=== PATIENT | male | born 1995 | race Caucasian/White ===

== ENCOUNTER 2018-12-31 20:56 | Inpatient (IN) ==
[2018-12-31 22:00] LABS: Basophils % 0.2 %; Hematocrit 45.1 % (37.5-50.1); Hemoglobin 15.8 g/dL (12.9-16.9); Immature Granulocytes % 0.7 % (0-4); Lymphocytes % 5.9 %; Mean Corpuscular Hemoglobin 30.3 pg (28.0-33.3); Mean Corpuscular Volume 86.4 fL (83.0-100.0); Mean Platelet Volume 9.2 fL (9.4-12.4); Monocytes # 1.6 K/mcL (0.0-1.3); Monocytes % 9.1 %; Neutrophils # 14.8 K/mcL (1.6-8.9); Platelet Count 224 K/mcL (140-400); Red Blood Count 5.22 M/mcL (4.19-5.50); Red Cell Distribution Width 12.1 % (11.5-14.5); Segmented Neutrophils % 84.1 %; White Blood Count 17.6 K/mcL (4.3-11.1)
[2018-12-31 22:00] LABS: Bilirubin,Urine Small (Negative); Blood,Urine Negative (Negative); Clarity,Urine Cloudy (Clear); Color,Urine Orange (Yellow); Glucose,Urine (UA) Normal (Normal); Ketones,Urine 15 mg/dL (Negative); Leukocyte Esterase,Urine Small (Negative); Nitrite,Urine Positive (Negative); PH,Urine 5.5 pH Units (5.0-8.0); Protein,Urine 100 mg/dL (Neg-Trace); Specific Gravity,Urine > 1.030 (1.010-1.025); Urobilinogen,Urine Normal (Normal)
[2018-12-31 22:03] LABS: Squamous Epithelial Cell,Urine Many per lpf (None-Few); WBC,Urine 30-50 per hpf (0-3)
[2018-12-31 22:15] LABS: Bacteria,Urine Few per hpf (None-Few); Hyaline Casts,Urine Few per lpf (None-Few); Mucus,Urine Few (Few)
[2018-12-31 22:19] LABS: BUN/Creatinine Ratio 10 (6-26); Blood Urea Nitrogen 13 mg/dL (6-20); Calcium 9.6 mg/dL (8.6-10.3); Carbon Dioxide 27 mEq/L (23-29); Chloride 97 mEq/L (98-107); Glucose 160 mg/dL (70-105); Osmolality,Calculated 282 (280-300); Potassium 4.1 mEq/L (3.5-5.1); Sodium 134 mEq/L (136-145); eGFR For African Americans > 60 (> 60); eGFR For Non-African Americans > 60 (> 60)
--- NOTE | 2018-12-31 23:05 | Emergency Department Note ---
Disposition Clinical Impression: Acute appendicitis Qualifiers: Acute appendicitis type: with generalized peritonitis Appendicitis gangrene presence: unspecified whether gangrene present Appendicitis perforation presence: with perforation Appendicitis abscess presence: without abscess Qualified Code(s): K35.20 - Acute appendicitis with generalized peritonitis, without abscess Disposition: Admitted As Inpatient Condition: Good Time of Disposition: 01:58 Abdominal Pain HPI - General Chief Complaint: ED Abdominal Pain Stated Complaint: right side abdomen pain. Time Seen by Provider: 12/31/18 22:16 Source: patient Nursing Notes Reviewed: Yes Vital Signs Reviewed: Yes - History of Present Illness HPI Narrative: 23-year-old male presents with 3 day history of abdominal pain. He describes it as stabbing. He describes it as initially was periumbilical, but had moved to his right side today at work. He does mention he was seen at urgent care yesterday received some IV medications. He was told that he did have an elevated white count. He was given a prescription for Zofran for home and recommended some laxatives.He was given return precautions. He mentions he did have a bowel movement yesterday that was consistent with diarrhea and the use of his laxatives. He return to ED tonight with persisting symptoms. He has been taking Zofran. He denies any fevers, chills, nausea, vomiting, urinary s ymptoms. Patient denies any past surgical history, history kidney stones. Pain Scale: 10 - Related Data Allergies Allergy/AdvReac Type Severity Reaction Status Date / Time Amoxicillin AdvReac Rash Verified 12/31/18 21:06 All systems ED: reviewed and negative except as stated. Review of Systems: As Per HPI Constitutional: Denies: fever, chills, weakness Eyes: Denies: eye pain ENT ED: Denies: throat pain Cardiovascular: Denies: chest pain Respiratory: Denies: dyspnea Gastrointestinal: Reports: as per HPI Genitourinary: Denies: dysuria Musculoskeletal: Denies: back pain Integumentary: Denies: rash Neurological: Denies: weakness, numbness, paresthesias Endocrine: Denies: fatigue Hematological/Lymphatic: Denies: lymphadenopathy Allergic/Immunologic: Denies: facial swelling Abdominal Pain PMH - Past Medical History Medical history: Reports: no medical history Male Surgical History: Reports: no surgical history Psychiatric history: Reports: no psych history - Social History Smoking status: Never smoker Alcohol use: Reports: none Drug use: Reports: none Physical Exam - General Limitations: no limitations General appearance: alert, in no apparent distress - Head Head exam: normocephalic - Eye Eye exam: Present: normal appearance, EOMI - ENT ENT exam: mucous membranes moist - Neck Neck exam: Present: full ROM - Chest Chest inspection: Present: normal inspection, symmetric chest wall rise - Respiratory Respiratory exam: Present: normal lung sounds bilaterally. Absent: respiratory distress, wheezes, stridor - Cardiovascular Cardiovascular exam: Present: regular rate, normal rhythm - Abdominal Exam Abdominal exam: Present: soft, tenderness Abdominal tenderness: Present: RUQ, RLQ - Extremities Exam Extremities exam: Present: full ROM, normal capillary refill - Back Exam Back exam: Present: full ROM. Absent: CVA tenderness (R), CVA tenderness (L) - Neurological Exam Neurological exam: Present: alert - Psychiatric Psychiatric exam: Present: normal affect, normal mood - Skin Skin exam: Present: warm, dry, intact, normal color. Absent: rash, cyanosis, diaphoresis Course Course Narrative: Patient resides with 3 day history of abdominal pain. Seen in urgent care in [place]. Pt describes a abdominal xray that showed gas and stool. No relief with Zofran and laxatives. Is not accompanied with fever, nausea, vomiting or urinary symptoms. Protocol orders placed by nursing. Patient does have an elevated white count. This was also elevated at urgent care for patient's report. Some evidence of urinary tract infection. On examination tenderness to the right upper quadrant right lower quadrant, no CVA tenderness. Initial vitals wnl. Plan For analgesics antiemetics, fluids, CT scan. Patient discussed with attending Dr. Ty Beatty who agreed to see patient and agreed with workup and CT. He also added LFT for clinica jaundice. - Reevaluation(s) Reevaluation #1: Pt received pain meds and 1L fluids. HR now 113, and pt c/o fever. I asked nurses to repeat vitals/temp. Will order fluids and blood cultures and lactic. Plan for abx. CT still pending. Time: 01:02 Reevaluation #2: I received a call from [facility], spoke with radiologist Dr. Moctezuma, who mentioned patient had perforated appendix. Time: 01:18 Reevaluation #3: @01:[address] findings and surgery consult. Also discussed pt's history or amoxicillin, he mentions he had a rash when he was younger. Mom is in the room, mentions that she also has a rash with allergies, this is a one-time reaction from both of them. They deny any symptoms of anaphylaxis. I did discuss Dr. Mitchell's recommendation to start Zosyn over alternatives, patient is agreeable to try this. Also discussed with in-house pharmacist Michael, who a dvised that Zosyn likely would be okay, would advise for monitoring, and consider Benadryl. Time: 01:30 - Consultations Consultation #1: Discussed patient, CT findings, and WBC with on-call surgeon Dr. Mitchell who agreed to see patient in the ED department. He also agreed for abx and rec'd Zosyn. Since patient does have amoxicllin allergy he advised to consult pharmacy as Zosyn would be more ideal versus alternatives. Time: 01:28 Consultation #2: Pt discussed with Dr. Mitchell again who had face time with patient. He feels elevated bili likely related to acute appendicitis/ [place] syndrome. He will plan to take patient to OR. Time: 02:08 Vital Signs Temperature 98.4 F 12/31/18 21:06 Pulse Rate 94 12/31/18 21:06 Respiratory Rate 20 12/31/18 21:06 Blood Pressure 116/63 12/31/18 21:06 O2 Sat by Pulse Oximetry 100 12/31/18 21:06 Temperature 102.7 F H 01/01/19 01:11 Pulse Rate 107 12/31/18 23:34 Respiratory Rate 18 12/31/18 23:34 Blood Pressure 118/81 12/31/18 23:34 O2 Sat by Pulse Oximetry 99 12/31/18 23:34 Oxygen Delivery Oxygen Delivery Room Air Abdominal Pain - MDM Narrative Medical decision making narrative: Patient presented with three-day history of abdominal pain. He was previously seen in urgent care and [facility]. Trial of Zofran and laxatives had no improvement. His pain was initially periumbilical and moved to his right side. On my examination, he was tender in the right upper quadrant and right lower quadrant. He had no flank pain. CT did show perforated appendix. Initially his vital signs were within normal limits, and he was afebrile. On reassessment he had a fever, and increased heart rate despite fluids. Lactic acid and blood cultures are taken. Antibiotics ordered. Patient did have a amoxicillin allergy, and discussion with him, this apparently was a rash when he was very young. I did discuss reaction with his mother and patient, there is no concern for anaphylaxis and patient was agreeable to try Zosyn. Pharmacy had recommended Benadryl in conjunction. Patient was seen by surgery and accepted to their service. Pt discussed with attending Dr. Beatty who had facetime with patient and agreed with work up and dispo. Abdomen/Pelvis CT 01/01/19 23:07 IMPRESSION: Perforated appendicitis. Mild ascites. D/ / Sushant Moctezuma MD / Sushant Moctezuma MD Interpreting Provider: Sushant Moctezuma MD Laboratory Tests 12/31/18 12/31/18 12/31/18 21:51 21:52 21:52 WBC 17.6 H RBC 5.22 Hgb 15.8 Hct 45.1 MCV 86.4 MCH 30.3 MCHC 35.0 RDW 12.1 Plt Count 224 MPV 9.2 L Immature Gran % 0.7 Seg Neutrophils % 84.1 Lymphocytes % 5.9 Monocytes % 9.1 Eosinophils % 0.0 Basophils % 0.2 Neutrophils # 14.8 H Lymphocytes # 1.0 Monocytes # 1.6 H Eosinophils # 0.0 Basophils # 0.0 Sodium 134 L Potassium 4.1 Chloride 97 L Carbon Dioxide 27 BUN 13 Creatinine 1.33 H Est GFR ( Amer) > 60 Est GFR (Non-Af Amer) > 60 BUN/Creatinine Ratio 10 Glucose 160 H Calculated Osmolality 282 Calcium 9.6 Total Bilirubin 4.7 H Direct Bilirubin 0.7 H Indirect Bilirubin 4.0 H AST 15 ALT 12 Alkaline Phosphatase 49 Serum Total Protein 7.9 Albumin 4.9 Globulin 3.0 Albumin/Globulin Ratio 1.6 Urine Color [place] A Urine Clarity Cloudy A Urine pH 5.5 Ur Specific [place] > 1.030 H Urine Protein 100 H Urine Glucose (UA) Normal Urine Ketones 15 H Urine Blood Negative Urine Nitrite Positive A Urine Bilirubin Small H Urine Urobilinogen Normal Ur Leukocyte Esterase Small H Urine Microscopic RBC 3-5 H Urine Microscopic WBC 30-50 H Ur Squamous Epith Cells Many H Urine Bacteria Few Hyaline Casts Few Urine Mucus Few Ur Culture Indicated? YES A - Lab Data Lab results reviewed: Yes I reviewed the patient's lab results. Result diagrams: 12/31/18 21:52 12/31/18 21:52 Lab Results 12/31/18 12/31/18 12/31/18 Range/Units 21:51 21:52 21:52 WBC 17.6 H (4.3-11.1) K/mcL RBC 5.22 (4.19-5.50) M/mcL Hgb 15.8 (12.9-16.9) g/dL Hct 45.1 (37.5-50.1) % MCV 86.4 (83.0-100.0) fL MCH 30.3 (28.0-33.3) pg MCHC 35.0 (31.6-35.5) g/dL RDW 12.1 (11.5-14.5) % Plt Count 224 (140-400) K/mcL MPV 9.2 L (9.4-12.4) fL Immature Gran % 0.7 (0-4) % Seg Neutrophils % 84.1 % Lymphocytes % 5.9 % Monocytes % 9.1 % Eosinophils % 0.0 % Basophils % 0.2 % Neutrophils # 14.8 H (1.6-8.9) K/mcL Lymphocytes # 1.0 (0.6-4.6) K/mcL Monocytes # 1.6 H (0.0-1.3) K/mcL Eosinophils # 0.0 (0.0-0.6) K/mcL Basophils # 0.0 (0.0-0.2) K/mcL Sodium 134 L (136-145) mEq/L Potassium 4.1 (3.5-5.1) mEq/L Chloride 97 L (98-107) mEq/L Carbon Dioxide 27 (23-29) mEq/L BUN 13 (6-20) mg/dL Creatinine 1.33 H (0.70-1.30) mg/dL Est GFR ( Amer) > 60 (> 60) Est GFR (Non-Af Amer) > 60 (> 60) BUN/Creatinine Ratio 10 (6-26) Glucose 160 H (70-105) mg/dL Calculated Osmolality 282 (280-300) Lactic Acid (0.5-2.2) mmol/L Calcium 9.6 (8.6-10.3) mg/dL Total Bilirubin 4.7 H (0.3-1.0) mg/dL Direct Bilirubin 0.7 H (0.0-0.2) mg/dL Indirect Bilirubin 4.0 H (0.0-1.2) mg/dL AST 15 (13-39) Units/L ALT 12 (7-52) Units/L Alkaline Phosphatase 49 (34-104) Units/L Serum Total Protein 7.9 (6.4-8.9) g/dL Albumin 4.9 (3.5-5.7) g/dL Globulin 3.0 (2.4-3.5) g/dL Albumin/Globulin Ratio 1.6 (1.1-2.2) Lipase 24 (11-82) Units/L Urine Color [place] A (Yellow) Urine Clarity Cloudy A (Clear) Urine pH 5.5 (5.0-8.0) pH Units Ur Specific [place] > 1.030 H (1.010-1.025) Urine Protein 100 H (Neg-Trace) mg/dL Urine Glucose (UA) Normal (Normal) mg/dL Urine Ketones 15 H (Negative) mg/dL Urine Blood Negative (Negative) Urine Nitrite Positive A (Negative) Urine Bilirubin Small H (Negative) Urine Urobilinogen Normal (Normal) mg/dL Ur Leukocyte Esterase Small H (Negative) Urine Microscopic RBC 3-5 H (0-3) per hpf Urine Microscopic WBC 30-50 H (0-3) per hpf Ur Squamous Epith Cells Many H (None-Few) per lpf Urine Bacteria Few (None-Few) per hpf Hyaline Casts Few (None-Few) per lpf Urine Mucus Few (Few) Ur Culture Indicated? YES A (NO) 01/01/19 Range/Units 01:11 WBC (4.3-11.1) K/mcL RBC (4.19-5.50) M/mcL Hgb (12.9-16.9) g/dL Hct (37.5-50.1) % MCV (83.0-100.0) fL MCH (28.0-33.3) pg MCHC (31.6-35.5) g/dL RDW (11.5-14.5) % Plt Count (140-400) K/mcL MPV (9.4-12.4) fL Immature Gran % (0-4) % Seg Neutrophils % % Lymphocytes % % Monocytes % % Eosinophils % % Basophils % % Neutrophils # (1.6-8.9) K/mcL Lymphocytes # (0.6-4.6) K/mcL Monocytes # (0.0-1.3) K/mcL Eosinophils # (0.0-0.6) K/mcL Basophils # (0.0-0.2) K/mcL Sodium (136-145) mEq/L Potassium (3.5-5.1) mEq/L Chloride (98-107) mEq/L Carbon Dioxide (23-29) mEq/L BUN (6-20) mg/dL Creatinine (0.70-1.30) mg/dL Est GFR ( Amer) (> 60) Est GFR (Non-Af Amer) (> 60) BUN/Creatinine Ratio (6-26) Glucose (70-105) mg/dL Calculated Osmolality (280-300) Lactic Acid 1.0 (0.5-2.2) mmol/L Calcium (8.6-10.3) mg/dL Total Bilirubin (0.3-1.0) mg/dL Direct Bilirubin (0.0-0.2) mg/dL Indirect Bilirubin (0.0-1.2) mg/dL AST (13-39) Units/L ALT (7-52) Units/L Alkaline Phosphatase (34-104) Units/L Serum Total Protein (6.4-8.9) g/dL Albumin (3.5-5.7) g/dL Globulin (2.4-3.5) g/dL Albumin/Globulin Ratio (1.1-2.2) Lipase (11-82) Units/L Urine Color (Yellow) Urine Clarity (Clear) Urine pH (5.0-8.0) pH Units Ur Specific [place] (1.010-1.025) Urine Protein (Neg-Trace) mg/dL Urine Glucose (UA) (Normal) mg/dL Urine Ketones (Negative) mg/dL Urine Blood (Negative) Urine Nitrite (Negative) Urine Bilirubin (Negative) Urine Urobilinogen (Normal) mg/dL Ur Leukocyte Esterase (Negative) Urine Microscopic RBC (0-3) per hpf Urine Microscopic WBC (0-3) per hpf Ur Squamous Epith Cells (None-Few) per lpf Urine Bacteria (None-Few) per hpf Hyaline Casts (None-Few) per lpf Urine Mucus (Few) Ur Culture Indicated? (NO) - Radiology Data Radiology results reviewed: Yes I reviewed the patient's radiology results. Attestation Statement - Attestation Attestation: I, Ty Beatty, examined this patient and my medical decision-making was reviewed with the CIG[employer]EDER/PA/Advanced Practice Nurse/Resident Physician. I agree with the documented findings, disposition and treatment plan as described except to the extent set forth below. 23-year-old male presents emergency Department with concerns of right flank and right upper quadrant abdominal pain. Symptoms of present over the past 24 hours. Patient is jaundiced on initial exam. He has tenderness to palpation of the right upper quadrant with mild guarding without evidence of rigidity. Patient denies a history of recent trauma. Reports a history of fatty liver disease in the past. No other history of gallbladder disorders. Patient reports nauseated, denies hematochezia or melena or hematemesis. Laboratory evaluations show that patient does have an elevated bilirubin levels. He is febrile emergency department. CT of the abdomen and pelvis pending at this time. Disposition is pending at this time.
[2018-12-31] MEDS ORDERED: Isovue-370 500 ML BOTTLE IVP ONE (23:07)
[2018-12-31] MEDS ORDERED: 0.9 % Sodium Chloride 1,000 ML IVC ONE (23:07)
[2018-12-31] MEDS ORDERED: Morphine Sulfate 2 MG/ML SYRINGE IVP ONE (23:08)
[2018-12-31] MEDS ORDERED: Ondansetron 4 MG/2 ML VIAL IVP ONE (23:08)
[2019-01-01 00:37] LABS: Alanine Aminotransferase 12 Units/L (7-52); Albumin 4.9 g/dL (3.5-5.7); Albumin/Globulin Ratio 1.6 (1.1-2.2); Alkaline Phosphatase 49 Units/L (34-104); Aspartate Amino Transferase 15 Units/L (13-39); Bilirubin,Direct 0.7 mg/dL (0.0-0.2); Bilirubin,Total 4.7 mg/dL (0.3-1.0); Total Protein 7.9 g/dL (6.4-8.9)
[2019-01-01] MEDS ORDERED: 0.9 % Sodium Chloride 1,000 ML IVC ONE (00:58)
[2019-01-01] MEDS ORDERED: Ketorolac 15 MG/ML VIAL IVP ONE (00:59)
[2019-01-01] MEDS ORDERED: Ibuprofen 400 MG TABLET PO ONE (01:16)
[2019-01-01] MEDS ORDERED: Piperacillin/Tazobactam 3.375 GM in Water for inj. (sterile) 20 ML IVP ONE (01:38)
[2019-01-01] MEDS ORDERED: *HR* FentaNYL (PF) 100 MCG/2 ML VIAL IVP ONE (01:39)
--- NOTE | 2019-01-01 02:07 | Acute Care Surgery H&P ---
Date of Encounter: 01/01/19 Time of Encounter: 01:50 Assessment and Plan (1) Acute appendicitis Current Visit: Yes Status: Acute The assessment and plan as outlined above was discussed with the patient and/or family members who expressed understanding and agreement. All questions were answered. Acute appendicitis with perforation. We will plan emergent laparoscopic appendectomy with peritoneal irrigation. The patient also has elevated bilirubin levels. His transaminase levels are normal. Phosphatase is normal. 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 Qualifiers: Acute appendicitis type: with generalized peritonitis Appendicitis gangrene presence: unspecified whether gangrene present Appendicitis perforation presence: with perforation Appendicitis abscess presence: without abscess Qualified Code(s): K35.20 - Acute appendicitis with generalized peritonitis, without abscess History of Present Illness Chief complaint: Abdominal pain HPI: Mr. Gonzalez is a 23 year old male Who has a 2 day history of abdominal pain. Yesterday morning at 5 AM he presented to urgent care with complaints of epigastric central and right lower quadrant abdominal pain. He was discharged without follow-up. He had worsening pain throughout the day. Pain is now localized to the right lower quadrant. He has pain with motion. He has anorexia. He has shakes and chills. The patient is clinically jaundiced and follow-up laboratory testing demonstrates bilirubin of 4.7. Transaminases and alkaline phosphatase are normal. He has a leukocytosis of 17,400. I personally reviewed CAT scan of the abdomen. He has periappendiceal inflammation with small dots of free air and inflammatory changes up and down the right gutter. I would not classify this as phlegmon or abscess. Past Med Surg Social Fam HX - Past Medical History Medical history: no medical history Psychiatric history: no psych history - Social History Smoking Status: Never smoker Smokeless Tobacco Status: Yes Alcohol use: none Drug use: none Medications and Allergies Allergy/AdvReac Type Severity Reaction Status Date / Time Amoxicillin AdvReac Rash Verified 12/31/18 21:06 Review of Systems All systems PM: The remainder of the systems were reviewed and are negative General Surgery Exam Initial Vital Signs Temp Pulse Resp BP Pulse Ox 98.4 F 94 20 116/63 100 12/31/18 21:06 12/31/18 21:06 12/31/18 21:06 12/31/18 21:06 12/31/18 21:06 - General physical appearance well developed, well nourished, moderate distress, severe pain - Respiratory normal expansion, normal respiratory effort, clear to auscultation - Cardiovascular Cardiovascular exam: Present: RRR, no murmurs/rubs/gallops - Abdomen Abdomen general surgery: Present: bowel sounds present, tender Abdominal Tenderness: Present: RLQ (The patient has rebound tenderness and involuntary guarding at McBurney's point) - Integumentary Integumentary general surgery: Present: warm and dry, no abnormal pigmentation, other (Clinical sclera jaundice) - Neurologic Present: CN 2-12 grossly intact, normal coordination, normal sensation - Psychiatric Psychiatric general surgery: Present: appropriate, oriented to person, oriented to place, oriented to time, speech is normal, memory intact Results - Labs 12/31/18 21:52 12/31/18 21:52 Abnormal lab results WBC 17.6 K/mcL (4.3-11.1) H 12/31/18 21:52 MPV 9.2 fL (9.4-12.4) L 12/31/18 21:52 Neutrophils # 14.8 K/mcL (1.6-8.9) H 12/31/18 21:52 Monocytes # 1.6 K/mcL (0.0-1.3) H 12/31/18 21:52 Sodium 134 mEq/L (136-145) L 12/31/18 21:52 Chloride 97 mEq/L (98-107) L 12/31/18 21:52 Creatinine 1.33 mg/dL (0.70-1.30) H 12/31/18 21:52 Glucose 160 mg/dL (70-105) H 12/31/18 21:52 Total Bilirubin 4.7 mg/dL (0.3-1.0) H 12/31/18 21:52 Direct Bilirubin 0.7 mg/dL (0.0-0.2) H 12/31/18 21:52 Indirect Bilirubin 4.0 mg/dL (0.0-1.2) H 12/31/18 21:52 Urine Color [place] (Yellow) A 12/31/18 21:51 Urine Clarity Cloudy (Clear) A 12/31/18 21:51 Ur Specific [place] > 1.030 (1.010-1.025) H 12/31/18 21:51 Urine Protein 100 mg/dL (Neg-Trace) H 12/31/18 21:51 Urine Ketones 15 mg/dL (Negative) H 12/31/18 21:51 Urine Nitrite Positive (Negative) A 12/31/18 21:51 Urine Bilirubin Small (Negative) H 12/31/18 21:51 Ur Leukocyte Esterase Small (Negative) H 12/31/18 21:51 Urine Microscopic RBC 3-5 per hpf (0-3) H 12/31/18 21:51 Urine Microscopic WBC 30-50 per hpf (0-3) H 12/31/18 21:51 Ur Squamous Epith Cells Many per lpf (None-Few) H 12/31/18 21:51 Ur Culture Indicated? YES (NO) A 12/31/18 21:51 Diabetes panel 12/31/18 Range/Units 21:52 Sodium 134 L (136-145) mEq/L Potassium 4.1 (3.5-5.1) mEq/L Chloride 97 L (98-107) mEq/L Carbon Dioxide 27 (23-29) mEq/L BUN 13 (6-20) mg/dL Creatinine 1.33 H (0.70-1.30) mg/dL Glucose 160 H (70-105) mg/dL Calcium 9.6 (8.6-10.3) mg/dL AST 15 (13-39) Units/L ALT 12 (7-52) Units/L Alkaline Phosphatase 49 (34-104) Units/L Albumin 4.9 (3.5-5.7) g/dL Calcium panel 12/31/18 Range/Units 21:52 Calcium 9.6 (8.6-10.3) mg/dL Albumin 4.9 (3.5-5.7) g/dL Pituitary panel 12/31/18 Range/Units 21:52 Sodium 134 L (136-145) mEq/L Potassium 4.1 (3.5-5.1) mEq/L Chloride 97 L (98-107) mEq/L Carbon Dioxide 27 (23-29) mEq/L BUN 13 (6-20) mg/dL Creatinine 1.33 H (0.70-1.30) mg/dL Glucose 160 H (70-105) mg/dL Calcium 9.6 (8.6-10.3) mg/dL Adrenal panel 12/31/18 Range/Units 21:52 Sodium 134 L (136-145) mEq/L Potassium 4.1 (3.5-5.1) mEq/L Chloride 97 L (98-107) mEq/L Carbon Dioxide 27 (23-29) mEq/L BUN 13 (6-20) mg/dL Creatinine 1.33 H (0.70-1.30) mg/dL Glucose 160 H (70-105) mg/dL Calcium 9.6 (8.6-10.3) mg/dL Total Bilirubin 4.7 H (0.3-1.0) mg/dL AST 15 (13-39) Units/L ALT 12 (7-52) Units/L Alkaline Phosphatase 49 (34-104) Units/L Albumin 4.9 (3.5-5.7) g/dL All other labs normal. - Imaging CT scan - abdomen: image reviewed (I personally reviewed the CAT scan of the abdomen. He has hernan- Appendiceal inflammation and periappendiceal dots of free air. No discrete abscess.)
[2019-01-01 02:14] LABS: Lipase 24 Units/L (11-82)
[2019-01-01] MEDS ORDERED: CefOXitin 1,000 MG VIAL ONE (02:27)
--- NOTE | 2019-01-01 02:48 | Anesthesia Evaluation PreOp ---
Date of Encounter: 01/01/19 Time of Encounter: 02:46 - Past History Planned Operation: LAP APPENDECTOMY Cardiac History: Denies any Significant Hx Pulmonary History: Denies Any Significant HX [employer] History: Denies Any Significant HX Other Medical History: Denies Any Significant HX Alcohol Use: none Drug use: none Medications and Allergies Allergy/AdvReac Type Severity Reaction Status Date / Time Amoxicillin AdvReac Rash Verified 12/31/18 21:06 - Meds/Allergy Pre-op Review Medications Reviewed: Yes Allergies Reviewed: Yes Anesthesia Results - Labs 12/31/18 21:52 12/31/18 21:52 Anesthesia Exam Vital Signs/O2 Sat, Most Current Temp Pulse Resp BP Pulse Ox 102.7 F H 107 18 118/81 99 01/01/19 01:11 12/31/18 23:34 12/31/18 23:34 12/31/18 23:34 12/31/18 23:34 Weight: 105 KG - BMI 29 NPO (# of Hours): 8 - HEENT Mallampati: I Teeth: Normal - Cardiac Rhythm: Regular - Pulmonary Breath Sounds: bilateral Clear Anesthesia Assess/Plan ASA Score: 1, E Anesthetic Plan: General Monitoring Plan: Standard Monitors Recovery Plan: PACU
[2019-01-01] MEDS ORDERED: Ondansetron 4 MG/2 ML VIAL IVP ONE (02:49)
[2019-01-01] MEDS ORDERED: Acetaminophen IV 1,000 MG/100 ML INFUS..BTL IVPB ONE (02:49)
[2019-01-01] MEDS ORDERED: *HR* Promethazine 25 MG/ML VIAL IVP PRN (02:49)
[2019-01-01] MEDS ORDERED: *HR* OxyCODONE Immed Rel 5 MG TABLET PO PRN (02:49)
[2019-01-01] MEDS ORDERED: *HR* Meperidine 25 MG/ML SYRINGE IVP PRN (02:49)
[2019-01-01] MEDS ORDERED: *HR* HYDROmorphone (PF) 1 MG/ML SYRINGE IVP PRN (02:49)
[2019-01-01] MEDS ORDERED: Albuterol 2.5 MG/3 ML NEBULIZER IH ONE (02:49)
[2019-01-01] MEDS ORDERED: Acetaminophen IV 1,000 MG/100 ML INFUS..BTL ONE (02:55)
[2019-01-01] MEDS ORDERED: *HR* FentaNYL (PF) 100 MCG/2 ML VIAL ONE ×2 (02:58→04:04)
[2019-01-01] MEDS ORDERED: *HR* Propofol 200 MG/20 ML VIAL IVP ONE (02:59)
[2019-01-01] MEDS ORDERED: *HR* Succinylcholine 200 MG/10 ML VIAL IVP ONE (03:04)
[2019-01-01] MEDS ORDERED: Lidocaine -MPF 2% 2 ML VIAL ONE (03:04)
[2019-01-01] MEDS ORDERED: Ondansetron 4 MG/2 ML VIAL ONE (03:04)
[2019-01-01] MEDS ORDERED: Dexamethasone 4 MG/ML VIAL ONE (03:04)
[2019-01-01] MEDS ORDERED: *HR* Rocuronium Bromide 50 MG/5 ML VIAL ONE (03:04)
[2019-01-01] MEDS ORDERED: Ondansetron 4 MG/2 ML VIAL IVP PRN ×2 (04:02→04:50)
[2019-01-01] MEDS ORDERED: *HR* OxyCODONE/APAP 5/325 TABLET PO PRN (04:02)
--- NOTE | 2019-01-01 04:09 | Operative Note ---
Date of procedure: 01/01/19 Pre-op diagnosis: Perforated acute appendicitis Post-op diagnosis: same Procedure: Laparoscopic appendectomy Anesthesia: VIOLETA Surgeon: Wander Mitchell Was there an speech pathology assistant present: No Estimated blood loss (cc): 10 Specimen: Gangrenous appendix Condition: stable Disposition: PACU Procedure in Detail: After informed consent the patient is taken to the major operating suite placed in the supine position and given adequate general endotracheal anesthesia. Timeout was taken and the patient was identified. The abdomen was prepped and draped in sterile fashion utilizing ChloraPrep standard draping techniques timeout was taken a second time the patient was identified. Made a vertical midline incision below the umbilicus and dissected down to the level of the fascia. 2 traction stitches of 0 Vicryl were placed. The abdomen was entered visually. A place the laparoscope. It was immediately apparent that there was pus present in the pelvis, right gutter, and in the perihepatic area area all the pus was suctioned free. I placed a 5 mm trocar in the suprapubic area and a 12 trocar in the right upper quadrant. The appendix was high and retrocecal. The bend of the appendix actually touched the inferior portion of the liver. As with all retrocecal appendix, the blood supply mesentery was spread out. Blood supply was divided with 2 loads of vascular nigel and the base the appendix was secured with one load of the gastrointestinal load for the laparoscopic stapler. The appendix was recovered in the specimen bag through the umbilical port site. I replaced the umbilical port. I irrigated with copious amounts of antibiotic containing solution. All visible purulence was removed. The patient was noted to have free pus and purulence in the abdomen and evidence of peritonitis. All trochars were removed. Fascia was closed with 0 Vicryl. Skin was closed with 2-0 Vicryl and 4-0 Vicryl. He tolerated the procedure well
[2019-01-01] MEDS ORDERED: 0.9 % Sodium Chloride 1,000 ML IVC SCH (04:15)
--- NOTE | 2019-01-01 04:38 | Anesthesia Evaluation Post Op ---
Date of Encounter: 01/01/19 Time of Encounter: 04:37 - Discharge PostOp Status: Transfer Patient to floor (Patient's vital signs have been reviewed. Patient is stable postoperatively and has adequately recovered from anesthesia. Patient is determined to have stable airway patency and respiratory function including respiratory rate and oxygen saturation. Patient has a stable heart rate, blood pressure and adequate hydration. Patients mental status is acceptable. Patients temperature is appropriate. Pain and nausea are adequately controlled)
[2019-01-01 04:46] LABS: Hepatitis B Surface Antigen Nonreactive (Nonreactive)
[2019-01-01 05:16] LABS: Hepatitis A Antibody IgM Nonreactive (Nonreactive); Hepatitis B Core IgM Nonreactive (Nonreactive); Hepatitis C Virus Antibody Nonreactive (Nonreactive)
[2019-01-01] MEDS: 0.9 % Sodium Chloride 1,000 ML IVC SCH ×2 (05:36→17:29)
[2019-01-01] MEDS: *HR* Heparin 5,000 UNIT/ML VIAL SQ SCH ×2 (05:37→17:25)
[2019-01-01] MEDS ORDERED: *HR* Heparin 5,000 UNIT/ML VIAL SQ SCH (06:00)
[2019-01-01] MEDS ORDERED: Piperacillin/Tazobactam 3.375 GM in 0.9 % Sodium Chloride Mini Bag 100 ML IVPB SCH (08:00)
[2019-01-01] MEDS: Piperacillin/Tazobactam 3.375 GM in 0.9 % Sodium Chloride Mini Bag 100 ML IVPB SCH ×2 (10:50→17:24)
[2019-01-01] MEDS: *HR* OxyCODONE/APAP 5/325 TABLET PO PRN (20:46)
[2019-01-02] MEDS: Piperacillin/Tazobactam 3.375 GM in 0.9 % Sodium Chloride Mini Bag 100 ML IVPB SCH ×3 (02:40→18:11)
[2019-01-02] MEDS: *HR* Heparin 5,000 UNIT/ML VIAL SQ SCH ×2 (06:03→18:11)
[2019-01-02 07:16] LABS: Basophils % 0.2 %; Eosinophils % 0.1 %; Immature Granulocytes % 0.4 % (0-4); Lymphocytes % 8.5 %; Mean Corpuscular HGB Conc 33.1 g/dL (31.6-35.5); Mean Corpuscular Hemoglobin 29.4 pg (28.0-33.3); Mean Corpuscular Volume 88.9 fL (83.0-100.0); Mean Platelet Volume 10.2 fL (9.4-12.4); Monocytes # 1.3 K/mcL (0.0-1.3); Monocytes % 11.3 %; Platelet Count 171 K/mcL (140-400); Red Blood Count 4.05 M/mcL (4.19-5.50); Red Cell Distribution Width 12.4 % (11.5-14.5); Segmented Neutrophils % 79.5 %; White Blood Count 11.3 K/mcL (4.3-11.1)
[2019-01-02 07:29] LABS: Alanine Aminotransferase 8 Units/L (7-52); Albumin 3.5 g/dL (3.5-5.7); Albumin/Globulin Ratio 1.3 (1.1-2.2); Alkaline Phosphatase 35 Units/L (34-104); Aspartate Amino Transferase 7 Units/L (13-39); BUN/Creatinine Ratio 20 (6-26); Bilirubin,Direct 0.4 mg/dL (0.0-0.2); Bilirubin,Indirect 1.4 mg/dL (0.0-1.2); Bilirubin,Total 1.8 mg/dL (0.3-1.0); Blood Urea Nitrogen 18 mg/dL (6-20); Carbon Dioxide 27 mEq/L (23-29); Chloride 104 mEq/L (98-107); Globulin 2.7 g/dL (2.4-3.5); Glucose 107 mg/dL (70-105); Osmolality,Calculated 288 (280-300); Potassium 4.2 mEq/L (3.5-5.1); Sodium 138 mEq/L (136-145); Total Protein 6.2 g/dL (6.4-8.9); eGFR For African Americans > 60 (> 60); eGFR For Non-African Americans > 60 (> 60)
[2019-01-02 08:31] LABS: Hemoglobin 11.9 g/dL (12.9-16.9)
[2019-01-02] MEDS: *HR* OxyCODONE/APAP 5/325 TABLET PO PRN ×2 (09:45→20:53)
--- NOTE | 2019-01-02 12:45 | AcuteCareSurgery Progress Note ---
Date of Encounter: 01/02/19 Time of Encounter: 12:42 - Assessment and Plan (1) Acute appendicitis Current Visit: Yes Status: Acute 23M POD #1 s/p lap appy 2/2 perforated appendicitis; diet as tolerated cont with IV abx if afebrile for another 24hrs and WBC wnl then okay for discharge activity as tolerated Qualifiers: Acute appendicitis type: with generalized peritonitis Appendicitis gangrene presence: unspecified whether gangrene present Appendicitis perforation presence: with perforation Appendicitis abscess presence: with abscess Qualified Code(s): K35.21 - Acute appendicitis with generalized peritonitis, w ith abscess Subjective Patient reports: no new complaints, feels better, afebrile Objective Vital Signs - Last 8 Hours Temp Pulse Resp BP Pulse Ox 01/02/19 11:26 98.2 F 73 17 116/73 98 01/02/19 07:27 98.0 F 74 18 115/72 98 Intake and Output 01/01/19 01/02/19 01/02/19 23:59 07:59 15:59 Intake Total 0 / 3360 900 / 1100 200 / 1100 Output Total 550 / 560 0 / 0 Balance -550 / 2800 900 / 1100 200 / 1100 Intake: IV Fluids 200 / 200 Zosyn 3.375 GM In 0.9 % Sodium 200 / 200 Chloride (Mini-Bag +) 100 ML @ 25 mls/hr IVPB Q8H QUINN Rx#: [id number] Oral 0 / 240 700 / 900 200 / 900 Output: Urine 550 / 550 0 / 0 Other: # Voids 1 - General physical appearance no distress - Respiratory normal expansion, normal respiratory effort - Cardiovascular Cardiovascular exam: Present: RRR - Abdomen Abdomen: Present: soft, tender (appropriately tender) - Incision Incision: Present: clean and dry - Neurologic CN 2-12 grossly intact - Psychiatric oriented to time, oriented to person, oriented to place - Labs 01/02/19 06:07 01/02/19 06:07 Diabetes panel 12/31/18 01/02/19 Range/Units 21:52 06:07 Sodium 134 L 138 (136-145) mEq/L Potassium 4.1 4.2 (3.5-5.1) mEq/L Chloride 97 L 104 (98-107) mEq/L Carbon Dioxide 27 27 (23-29) mEq/L BUN 13 18 (6-20) mg/dL Creatinine 1.33 H 0.91 (0.70-1.30) mg/dL Glucose 160 H 107 H (70-105) mg/dL Calcium 9.6 9.0 (8.6-10.3) mg/dL AST 15 7 L (13-39) Units/L ALT 12 8 (7-52) Units/L Alkaline Phosphatase 49 35 (34-104) Units/L Albumin 4.9 3.5 (3.5-5.7) g/dL Calcium panel 12/31/18 01/02/19 Range/Units 21:52 06:07 Calcium 9.6 9.0 (8.6-10.3) mg/dL Albumin 4.9 3.5 (3.5-5.7) g/dL Pituitary panel 12/31/18 01/02/19 Range/Units 21:52 06:07 Sodium 134 L 138 (136-145) mEq/L Potassium 4.1 4.2 (3.5-5.1) mEq/L Chloride 97 L 104 (98-107) mEq/L Carbon Dioxide 27 27 (23-29) mEq/L BUN 13 18 (6-20) mg/dL Creatinine 1.33 H 0.91 (0.70-1.30) mg/dL Glucose 160 H 107 H (70-105) mg/dL Calcium 9.6 9.0 (8.6-10.3) mg/dL Adrenal panel 12/31/18 01/02/19 Range/Units 21:52 06:07 Sodium 134 L 138 (136-145) mEq/L Potassium 4.1 4.2 (3.5-5.1) mEq/L Chloride 97 L 104 (98-107) mEq/L Carbon Dioxide 27 27 (23-29) mEq/L BUN 13 18 (6-20) mg/dL Creatinine 1.33 H 0.91 (0.70-1.30) mg/dL Glucose 160 H 107 H (70-105) mg/dL Calcium 9.6 9.0 (8.6-10.3) mg/dL Total Bilirubin 4.7 H 1.8 H (0.3-1.0) mg/dL AST 15 7 L (13-39) Units/L ALT 12 8 (7-52) Units/L Alkaline Phosphatase 49 35 (34-104) Units/L Albumin 4.9 3.5 (3.5-5.7) g/dL Consult Discharge Plan - Plan Referrals: NONE,PCP [Primary Care Provider] -
[2019-01-02] MEDS: 0.9 % Sodium Chloride 1,000 ML IVC SCH (12:52)
[2019-01-03] MEDS: Piperacillin/Tazobactam 3.375 GM in 0.9 % Sodium Chloride Mini Bag 100 ML IVPB SCH ×2 (02:01→09:58)
[2019-01-03 05:44] LABS: Basophils % 0.4 %; Eosinophils # 0.1 K/mcL (0.0-0.6); Eosinophils % 1.6 %; Hematocrit 35.5 % (37.5-50.1); Hemoglobin 11.9 g/dL (12.9-16.9); Immature Granulocytes % 0.3 % (0-4); Lymphocytes # 1.3 K/mcL (0.6-4.6); Lymphocytes % 17.3 %; Mean Corpuscular HGB Conc 33.5 g/dL (31.6-35.5); Mean Corpuscular Hemoglobin 29.6 pg (28.0-33.3); Mean Corpuscular Volume 88.3 fL (83.0-100.0); Mean Platelet Volume 9.9 fL (9.4-12.4); Monocytes # 0.9 K/mcL (0.0-1.3); Monocytes % 11.8 %; Platelet Count 201 K/mcL (140-400); Red Blood Count 4.02 M/mcL (4.19-5.50); Red Cell Distribution Width 12.5 % (11.5-14.5); Segmented Neutrophils % 68.6 %; White Blood Count 7.3 K/mcL (4.3-11.1)
[2019-01-03] MEDS: *HR* Heparin 5,000 UNIT/ML VIAL SQ SCH (05:50)
[2019-01-03 06:03] LABS: Alanine Aminotransferase 9 Units/L (7-52); Albumin 3.4 g/dL (3.5-5.7); Albumin/Globulin Ratio 1.4 (1.1-2.2); Alkaline Phosphatase 33 Units/L (34-104); Aspartate Amino Transferase 8 Units/L (13-39); BUN/Creatinine Ratio 16 (6-26); Bilirubin,Direct 0.2 mg/dL (0.0-0.2); Bilirubin,Indirect 0.9 mg/dL (0.0-1.2); Bilirubin,Total 1.1 mg/dL (0.3-1.0); Blood Urea Nitrogen 16 mg/dL (6-20); Calcium 8.7 mg/dL (8.6-10.3); Carbon Dioxide 27 mEq/L (23-29); Chloride 107 mEq/L (98-107); Globulin 2.5 g/dL (2.4-3.5); Glucose 90 mg/dL (70-105); Osmolality,Calculated 293 (280-300); Potassium 3.7 mEq/L (3.5-5.1); Sodium 141 mEq/L (136-145); Total Protein 5.9 g/dL (6.4-8.9); eGFR For African Americans > 60 (> 60); eGFR For Non-African Americans > 60 (> 60)
--- NOTE | 2019-01-03 13:51 | Discharge Summary ---
Orders not resulted at time of discharge: Pending orders 01/01/19 01:11 Culture,Blood [BC] Stat 01/01/19 03:52 Surgical Pathology [PTH] Routine Date of Encounter: 01/03/19 Time of Encounter: :15 - Discharge Diagnosis (1) Acute appendicitis Priority: Primary Status: Acute Comments: as described in the plan Qualifiers: Acute appendicitis type: with generalized peritonitis Appendicitis gangrene presence: unspecified whether gangrene present Appendicitis perforation presence: with perforation Appendicitis abscess presence: with abscess Qualified Code(s): K35.21 - Acute appendicitis with generalized peritonitis, with abscess General Surgery Exam Initial Vital Signs Temp Pulse Resp BP Pulse Ox 98.4 F 94 20 116/63 100 12/31/18 21:06 12/31/18 21:06 12/31/18 21:06 12/31/18 21:06 12/31/18 21:06 - General physical appearance no distress - Respiratory normal expansion, normal respiratory effort - Cardiovascular Cardiovascular exam: Present: RRR - Abdomen Abdomen general surgery: Present: soft - Incision Incision: Present: clean and dry, intact - Integumentary Integumentary general surgery: Present: warm and dry - Neurologic Present: CN 2-12 grossly intact - Hospital Course Hospital course: Mr. Gonzalez is a 23 year old male Time spent discussing smoking cessation with patient: 3 to 10 minutes - Time Spent with Patient Total time spent providing and/or coordinating discharge services: Greater than 30 minutes - Discharge Medications Prescriptions: New Amoxicillin/Clavulanate [Augmentin] 875 mg PO BIDWM 12 Days #24 tablet Continued Ondansetron ODT [Zofran ODT] 4 mg PO Q6H PRN PRN Reason: NAUSEA/VOMITING Home Medications: Ondansetron ODT [Zofran ODT] 4 mg PO Q6H PRN 01/01/19 [History] Amoxicillin/Clavulanate [Augmentin] 875 mg PO BIDWM 12 Days #24 tablet 01/03/19 [Rx] Allergies/Adverse Reactions: Allergy/AdvReac Type Severity Reaction Status Date / Time Amoxicillin AdvReac Rash Verified 01/01/19 09:05 Date of admission: 01/01/19 02:27 Primary care physician: PCP NONE Discharging clinician: Dale García Anticipated date of discharge: 01/03/19 Labs on day of discharge: Labs from last 24 hours 01/03/19 01/03/19 05:01 05:01 WBC 7.3 RBC 4.02 L Hgb 11.9 L Hct 35.5 L MCV 88.3 MCH 29.6 MCHC 33.5 RDW 12.5 Plt Count 201 MPV 9.9 Immature Gran % 0.3 Seg Neutrophils % 68.6 Lymphocytes % 17.3 Monocytes % 11.8 Eosinophils % 1.6 Basophils % 0.4 Neutrophils # 5.0 Lymphocytes # 1.3 Monocytes # 0.9 Eosinophils # 0.1 Basophils # 0.0 Sodium 141 Potassium 3.7 Chloride 107 Carbon Dioxide 27 BUN 16 Creatinine 0.98 Est GFR ( Amer) > 60 Est GFR (Non-Af Amer) > 60 BUN/Creatinine Ratio 16 Glucose 90 Calculated Osmolality 293 Calcium 8.7 Total Bilirubin 1.1 H Direct Bilirubin 0.2 Indirect Bilirubin 0.9 AST 8 L ALT 9 Alkaline Phosphatase 33 L Serum Total Protein 5.9 L Albumin 3.4 L Globulin 2.5 Albumin/Globulin Ratio 1.4 Preliminary micro results at discharge 01/01/19 01:11 Blood Culture - Preliminary Peripheral Venipuncture Culture is incubating and being continuously monitored for growth. Final report to follow. 01/01/19 01:11 Blood Culture - Preliminary Peripheral Venipuncture Culture is incubating and being continuously monitored for growth. Final report to follow. - Impressions ITS Impressions Abdomen/Pelvis CT 01/01/19 23:07 IMPRESSION: Perforated appendicitis. Mild ascites. D/ / Sushant Moctezuma MD / Sushant Moctezuma MD Interpreting Provider: Sushant Moctezuma MD - Patient Status Disposition: Home, Self-Care Condition: Good Overall status at discharge: patient is progressing back to baseline - Discharge Instructions Follow Up With: NONE,PCP [Primary Care Provider] - Wander Mitchell MD [Partnered Physician] - 01/12/19 (Paula or Alex) Forms: ED Satisfaction Letter, Work/School Release - Diet and Activity Activity: increase activity as tolerated Diet: advance to your usual diet
[2019-01-03] MEDS ORDERED: FLU Vac QV 19-20 (6Month+)/PF 0.5 ML SYRINGE IM ONE (15:07)
[2019-01-03 15:51] VITALS: BP 139/78
== END 2019-01-03 16:03 | disposition home or self-care (01) | DRG 339 ==
LOC: EMEROOARM 20:56 → 3ANU 20:56 → OBSVTOIN 01-01 02:27 → 3ANU 01-01 02:46
PROVIDERS: ADMIT Surgery; ATTEND Surgery